=== PATIENT | female | born 1960 | race American Indian/Alaskan Native ===

== ENCOUNTER 2018-12-13 12:42 | Observation (INO) | payer MEDICAID ==
--- NOTE | 2018-12-13 13:02 | Emergency Department Report ---
Blank Doc - Documentation Documentation: This is a 58-year-old female that presents with chest pain and SOB. Patient j ust had a ORIF to right leg. This initial assessment/diagnostic orders/clinical plan/treatment(s) is/are subject to change based on patient's health status, clinical progression and re- assessment by fellow clinical providers in the ED. Further treatment and workup at subsequent clinical providers discretion. Patient/guardians urged not to elope from the ED as their condition may be serious if not clinically assessed and managed. Initial orders include: 1- Patient sent to MAIN ED for further evaluation and treatment 2- EKG 3- labs 4- CXR
[2018-12-13 13:25] LABS: Basophils % (Auto) 0.4 % (0.0-1.8); Eosinophils # (Auto) 0.1 K/mm3 (0.0-0.4); Eosinophils % (Auto) 1.9 % (0.0-4.3); Hematocrit 40.7 % (30.3-42.9); Hemoglobin 13.4 gm/dl (10.1-14.3); Lymphocytes # (Auto) 2.6 K/mm3 (1.2-5.4); Lymphocytes % (Auto) 40.4 % (13.4-35.0); Mean Corpuscular HGB Conc 33 % (30-34); Mean Corpuscular Volume 91 fl (79-97); Monocytes # (Auto) 0.3 K/mm3 (0.0-0.8); Monocytes % (Auto) 5.2 % (0.0-7.3); Platelet Count 184 K/mm3 (140-440); Red Blood Count 4.49 M/mm3 (3.65-5.03); Red Cell Distribution Width 15.3 % (13.2-15.2)
[2018-12-13 13:35] LABS: INR 1.03 (0.87-1.13)
[2018-12-13 13:36] LABS: Partial Thromboplastin Time 28.1 Sec. (24.2-36.6)
[2018-12-13 13:50] LABS: BUN/Creatinine Ratio 16; Blood Urea Nitrogen 8 mg/dL (7-17); Calcium 10.3 mg/dL (8.4-10.2); Hemolysis Index 4
--- NOTE | 2018-12-13 14:15 | XRay Report ---
ROUTINE CHEST, TWO VIEWS: HISTORY: chest pain. The trachea, heart, mediastinal contour, lung cortes and bony thorax are unremarkable. IMPRESSION: Unremarkable chest x-ray.
--- NOTE | 2018-12-13 16:06 | Emergency Department Report ---
HPI - General Chief Complaint: Chest Pain Time Seen by Provider: 12/13/18 13:01 - HPI HPI: Room 26 The patient is a 58-year-old female presenting with chief complaint of chest pain. Patient states her symptoms began this morning at 03:00 with substernal chest pain radiating to the left shoulder. Patient also complains of left upper extremity tingling. Patient states her chest pain has been sharp and intermittent. Patient states that her shortness of breath and nausea associated with her chest pain. Patient does admit to pleuritic component. Of note the patient had surgery for right lower extremity fracture approximately 2-3 weeks ago. The patient states her last stress test occurred about 5 years ago but she's never had a cardiac catheterization Location: Chest Duration: Intermittent since 03:00 Quality: Sharp Severity: Moderate Modifying factors: [see above] Context: [see above] Mode of transportation: [not driving] ED Past Medical Hx - Past Medical History Previous Medical History?: Yes Additional medical history: HEPATITIS C - Surgical History Past Surgical History?: Yes Additional Surgical History: Right ankle surgery, facial surgery, herniorrhaphy - Family History Family history: no significant - Social History Smoking Status: Current Every Day Smoker (3 cigarettes daily) Substance Use Type: Alcohol (occasional), Marijuana - Medications Home Medications: Home Medications Medication Instructions Recorded Confirmed Last Taken Type Simeprevir Sodium [Olysio] 150 mg PO DAILY 12/04/13 12/04/13 Unknown History Sofosbuvir [Sovaldi] 400 mg PO DAILY 12/04/13 12/04/13 Unknown History ALBUTEROL Inhaler (OR & NICU) 2 puff IH QID PRN #1 inhalation 12/06/13 Unknown Rx [ProAir HFA Inhaler] Aspirin [Aspirin BABY CHEW TAB] 81 mg PO QDAY #30 tab.chew 12/06/13 Unknown Rx Atenolol [Tenormin] 25 mg PO QDAY #30 tablet 12/06/13 Unknown Rx Famotidine [Pepcid] 40 mg PO QHS #30 tablet 12/06/13 Unknown Rx Nitroglycerin [Nitrostat] 0.4 mg SL .Q5MIN PRN #30 tab 12/06/13 Unknown Rx levoFLOXacin [Levaquin TAB] 750 mg PO QDAY #12 tablet 12/06/13 Unknown Rx ED Review of Systems ROS: Stated complaint: LFT ARM/CHEST PAIN Other details as noted in HPI Constitutional: denies: diaphoresis Eyes: denies: eye pain ENT: denies: throat pain Respiratory: shortness of breath Cardiovascular: chest pain Endocrine: no symptoms reported Gastrointestinal: nausea. denies: vomiting Genitourinary: denies: dysuria Musculoskeletal: back pain Neurological: denies: headache Physical Exam - Physical Exam Vital Signs: Vital Signs 12/13/18 12/13/18 12/13/18 13:02 14:37 14:45 Temperature 98.2 F Pulse Rate 89 71 Respiratory 18 23 10 L Rate Blood Pressure 135/59 137/80 O2 Sat by Pulse 98 Oximetry 12/13/18 12/13/18 12/13/18 15:01 15:15 15:30 Temperature Pulse Rate 77 68 68 Respiratory 15 13 17 Rate Blood Pressure 147/78 139/82 133/73 O2 Sat by Pulse Oximetry Physical Exam: GENERAL: The patient is well-developed well-nourished female lying on stretcher not appearing to be in acute distress. [] HEENT: Normocephalic. Atraumatic. Extraocular motions are intact. Patient has moist mucous membranes. NECK: Supple. Trachea midline CHEST/LUNGS: Clear to auscultation. There is no respiratory distress noted. HEART/CARDIOVASCULAR: Regular. There is no tachycardia. There is no gallop rub or murmur. ABDOMEN: Abdomen is soft, nontender. Patient has normal bowel sounds. There is no abdominal distention. SKIN: There is no rash. There is no edema. There is no diaphoresis. NEURO: The patient is awake, alert, and oriented. The patient is cooperative. The patient has normal speech MUSCULOSKELETAL: There is no evidence of acute injury. ED Course Vital Signs 12/13/18 12/13/18 12/13/18 13:02 14:37 14:45 Temperature 98.2 F Pulse Rate 89 71 Respiratory 18 23 10 L Rate Blood Pressure 135/59 137/80 O2 Sat by Pulse 98 Oximetry 12/13/18 12/13/18 12/13/18 15:01 15:15 15:30 Temperature Pulse Rate 77 68 68 Respiratory 15 13 17 Rate Blood Pressure 147/78 139/82 133/73 O2 Sat by Pulse Oximetry ED Medical Decision Making - Lab Data Result diagrams: 12/13/18 13:13 12/13/18 13:13 Laboratory Tests 12/13/18 12/13/18 12/13/18 13:13 13:13 13:13 WBC 6.5 RBC 4.49 Hgb 13.4 Hct 40.7 MCV 91 MCH 30 MCHC 33 RDW 15.3 H Plt Count 184 Lymph % (Auto) 40.4 H Parker % (Auto) 5.2 Eos % (Auto) 1.9 Baso % (Auto) 0.4 Lymph # 2.6 Parker # 0.3 Eos # 0.1 Baso # 0.0 Seg Neutrophils % 52.1 Seg Neutrophils # 3.4 PT 14.1 INR 1.03 APTT 28.1 D-Dimer 390.89 H Sodium 146 H Potassium 4.6 Chloride 102.6 Carbon Dioxide 29 Anion Gap 19 BUN 8 Creatinine 0.5 L Estimated GFR > 60 BUN/Creatinine Ratio 16 Glucose 127 H Calcium 10.3 H Troponin T < 0.010 Blood Type Antibody Screen 12/13/18 12/13/18 13:13 15:22 WBC RBC Hgb Hct MCV MCH MCHC RDW Plt Count Lymph % (Auto) Parker % (Auto) Eos % (Auto) Baso % (Auto) Lymph # Parker # Eos # Baso # Seg Neutrophils % Seg Neutrophils # PT INR APTT D-Dimer Sodium Potassium Chloride Carbon Dioxide Anion Gap BUN Creatinine Estimated GFR BUN/Creatinine Ratio Glucose Calcium Troponin T < 0.010 Blood Type A POSITIVE Antibody Screen Negative - EKG Data -: EKG Interpreted by Me EKG shows normal: sinus rhythm Rate: normal - EKG Data When compared to previous EKG there are: no significant change (compared to EKG dated 12/04/2013) Interpretation: other (no ischemic changes seen) - Radiology Data Radiology results: report reviewed (chest x-ray, CT chest), image reviewed (chest x-ray, CT chest) interpreted by me: Chest x-ray-no focal infiltrate, no pneumothorax [facility] [address] [place] [address] XRay Report Signed Patient: NAHED ERNANDEZ MR#: [id number] : 1960 Acct:[id number] Age/Sex: 58 / F ADM Date: 12/13/18 Loc: ED Attending Dr: Ordering Physician: RICARDO CASTILLO NP Date of Service: 12/13/18 Procedure(s): XR chest routine 2V Accession Number(s): [id number] cc: RICARDO CASTILLO NP Fluoro Time In Minutes: ROUTINE CHEST, TWO VIEWS: HISTORY: chest pain. The trachea, heart, mediastinal contour, lung cortes and bony thorax are unremarkable. IMPRESSION: Unremarkable chest x-ray. Transcribed By: ALEXANDRA Dictated By: BRENDAN HEADLEY JR, MD Electronically Authenticated By: BRENDAN HEADLEY JR, MD Signed Date/Time: 12/13/181410 DD/ 09 TD/TT: 12/13/181410 [facility] [address] [place] [address] Cat Scan Report Signed Patient: NAHED ERNANDEZ MR#: [id number] : 1960 Acct:[id number] Age/Sex: 58 / F ADM Date: 12/13/18 Loc: ED Attending Dr: Ordering Physician: PRAVIN OLSEN MD Date of Service: 12/13/18 Procedure(s): CT angio chest Accession Number(s): [id number] cc: PRAVIN OLSEN MD PROCEDURE: CT ANGIO CHEST TECHNIQUE : Enhanced CT of the chest at 2.5 mm axial intervals following a pulmonary embolism protocol. Coronal and sagittal imaging were also obtained. Coronal oblique MIP projections were obtained. CT DOSE LENGTH PRODUCT: 301.3 mGycm HISTORY: chest pain PRIORS: CXR 12/13/2018 FINDINGS: There is no evidence for pulmonary embolism in the main pulmonary artery, right and left pulmonary arteries or their major distributions. However, CT does not exclude distal pul monary emboli. Otherwise, the lung parenchyma are expanded and clear with no evidence for parenchymal nodules, infiltrates, congestion, or pleural effusion. There is no evidence for mediastinal, hilar, or axillary adenopathy. Cardiovascular structures are within normal limits. No evidence for ventricular chamber enlargement is seen. Images through the lung bases include the upper abdomen which show no abnormalities of the visualized abdominal viscera. Bony structures demonstrate no focal abnormalities. IMPRESSION: No evidence for pulmonary embolism. Negative CT of the chest. This document is electronically signed by Zuly Crisostomo MD., December 13 2018 07:03:07 PM ET Transcribed By: [facility] Dictated By: ZULY CRISOSTOMO MD Electronically Authenticated By: ZULY CRISOSTOMO MD Signed Date/Time: 12/13/181904 DD/ 12 TD/TT: 12/13/181812 - Differential Diagnosis ACS, pericarditis, PE, GERD Critical care attestation.: If time is entered above; I have spent that time in minutes in the direct care of this critically ill patient, excluding procedure time. ED Disposition Clinical Impression: Chest pain Disposition: OP ADMIT IP TO THIS HOSP Is pt being admited?: Yes Does the pt Need Aspirin: Yes Condition: Fair Instructions: Chest Pain (ED) Referrals: PALLAVI HARTCAROLINA MD CARLOS [Primary Care Provider] - 3-5 Days Time of Disposition: 19:09 (hospitalist notified (Dr Torres))
[2018-12-13] MEDS ORDERED: ASPIRIN PO ONE (16:10)
--- NOTE | 2018-12-13 19:05 | Cat Scan Report ---
PROCEDURE: CT ANGIO CHEST TECHNIQUE : Enhanced CT of the chest at 2.5 mm axial intervals following a pulmonary embolism protoco l. Coronal and sagittal imaging were also obtained. Coronal oblique MIP projections were obtained. CT DOSE LENGTH PRODUCT: 301.3 mGycm HISTORY: chest pain PRIORS: CXR 12/13/2018 FINDINGS: There is no evidence for pulmonary embolism in the main pulmonary artery, right and left pulmonary ar teries or their major distributions. However, CT does not exclude distal pulmonary emboli. Otherwise, the lung parenchyma are expanded and clear with no evidence for parenchymal nodules, infil trates, congestion, or pleural effusion. There is no evidence for mediastinal, hilar, or axillary juancho nopathy. Cardiovascular structures are within normal limits. No evidence for ventricular chamber enla rgement is seen. Images through the lung bases include the upper abdomen which show no abnormalities of the visualized abdominal viscera. Bony structures demonstrate no focal abnormalities. IMPRESSION: No evidence for pulmonary embolism. Negative CT of the chest. This document is electronically signed by Zuly Crisostomo MD., December 13 2018 07:03:07 PM ET
--- NOTE | 2018-12-13 19:46 | History and Physical Report ---
History of Present Illness Date of examination: 12/13/18 Date of admission: 12/13/18 Chief complaint: Chest pain for 1 day History of present illness: 58-year-old female presents with chief complaint of chest pain. Patient states her symptoms began this morning at 03:00 with substernal chest pain radiating to the left shoulder. Patient also complains of left upper extremity tingling. Patient states her chest pain has been sharp and intermittent. Patient states that her shortness of breath and nausea associated with her chest pain. Patient does admit to pleuritic component. Of note the patient had surgery for right lower extremity fracture approximately 2-3 weeks ago. The patient states her last stress test occurred about 5 years ago but she's never had a cardiac catheterization Past Medical History Previous Medical History?: Yes Additional medical history: HEPATITIS C Surgical History Past Surgical History?: Yes Additional Surgical History: Right ankle surgery, facial surgery, herniorrhaphy Family History Family history: no significant Social History Smoking Status: Current Every Day Smoker (3 cigarettes daily) Substance Use Type: Alcohol (occasional), Marijuana Review of Systems ROS: Stated complaint: LFT ARM/CHEST PAIN Other details as noted in HPI Constitutional: denies: diaphoresis Eyes: denies: eye pain ENT: denies: throat pain Respiratory: shortness of breath Cardiovascular: chest pain Endocrine: no symptoms reported Gastrointestinal: nausea. denies: vomiting Genitourinary: denies: dysuria Musculoskeletal: back pain Neurological: denies: headache Medications and Allergies Allergies Allergy/AdvReac Type Severity Reaction Status Date / Time acetaminophen [From Percocet] AdvReac Unknown Verified 12/04/13 05:28 oxycodone HCl [From Percocet] AdvReac Unknown Verified 12/04/13 05:28 Penicillins AdvReac Unknown Verified 12/04/13 05:28 Home Medications Medication Instructions Recorded Confirmed Last Taken Type Aspirin [Aspirin BABY CHEW TAB] 81 mg PO QDAY #30 tab.chew 12/06/13 12/13/18 12/13/18 Rx Ascorbic Acid [Vitamin C] 500 mg PO DAILY 12/13/18 12/13/18 12/13/18 History Cyproheptadine [Periactin] 4 mg PO TID 12/13/18 12/13/18 12/12/18 History Docusate Sodium [Colace] 100 mg PO DAILY 12/13/18 12/13/18 12/13/18 History Pantoprazole [Protonix] 40 mg PO QDAY 12/13/18 12/13/18 12/12/18 History Exam - Constitutional Vitals: Temp Pulse Resp BP Pulse Ox 98.2 F 68 17 133/73 98 12/13/18 13:02 12/13/18 15:30 12/13/18 15:30 12/13/18 15:30 12/13/18 13:02 General appearance: Present: no acute distress, well-nourished - EENT Eyes: Present: PERRL ENT: hearing intact, clear oral mucosa - Neck Neck: Present: supple, normal ROM - Respiratory Respiratory effort: normal Respiratory: bilateral: CTA - Cardiovascular Heart rate: 78 Rhythm: regular Heart Sounds: Present: S1 & S2. Absent: rub, click - Extremities Extremities: no ischemia, pulses intact, pulses symmetrical, No edema Peripheral Pulses: within normal limits - Abdominal General gastrointestinal: Present: soft, non-tender, non-distended, normal bowel sounds Female genitourinary: Present: normal - Integumentary Integumentary: Present: clear, warm, dry - Musculoskeletal Musculoskeletal: gait normal, strength equal bilaterally - Psychiatric Psychiatric: appropriate mood/affect, intact judgment & insight - Neurologic Neurologic: CNII-XII intact, moves all extremities - Allied Health Allied health notes reviewed: nursing, case management Results - Labs CBC & Chem 7: 12/14/18 02:19 12/14/18 02:07 Labs: Laboratory Last Values WBC 6.5 K/mm3 (4.5-11.0) 12/13/18 13:13 RBC 4.49 M/mm3 (3.65-5.03) 12/13/18 13:13 Hgb 13.4 gm/dl (10.1-14.3) 12/13/18 13:13 Hct 40.7 % (30.3-42.9) 12/13/18 13:13 MCV 91 fl (79-97) 12/13/18 13:13 MCH 30 pg (28-32) 12/13/18 13:13 MCHC 33 % (30-34) 12/13/18 13:13 RDW 15.3 % (13.2-15.2) H 12/13/18 13:13 Plt Count 184 K/mm3 (140-440) 12/13/18 13:13 Lymph % (Auto) 40.4 % (13.4-35.0) H 12/13/18 13:13 Imperial % (Auto) 5.2 % (0.0-7.3) 12/13/18 13:13 Eos % (Auto) 1.9 % (0.0-4.3) 12/13/18 13:13 Baso % (Auto) 0.4 % (0.0-1.8) 12/13/18 13:13 Lymph # 2.6 K/mm3 (1.2-5.4) 12/13/18 13:13 Imperial # 0.3 K/mm3 (0.0-0.8) 12/13/18 13:13 Eos # 0.1 K/mm3 (0.0-0.4) 12/13/18 13:13 Baso # 0.0 K/mm3 (0.0-0.1) 12/13/18 13:13 Seg Neutrophils % 52.1 % (40.0-70.0) 12/13/18 13:13 Seg Neutrophils # 3.4 K/mm3 (1.8-7.7) 12/13/18 13:13 PT 14.1 Sec. (12.2-14.9) 12/13/18 13:13 INR 1.03 (0.87-1.13) 12/13/18 13:13 APTT 28.1 Sec. (24.2-36.6) 12/13/18 13:13 D-Dimer 390.89 ng/mlDDU (0-234) H 12/13/18 13:13 Sodium 146 mmol/L (137-145) H 12/13/18 13:13 Potassium 4.6 mmol/L (3.6-5.0) 12/13/18 13:13 Chloride 102.6 mmol/L (98-107) 12/13/18 13:13 Carbon Dioxide 29 mmol/L (22-30) 12/13/18 13:13 Anion Gap 19 mmol/L 12/13/18 13:13 BUN 8 mg/dL (7-17) 12/13/18 13:13 Creatinine 0.5 mg/dL (0.7-1.2) L 12/13/18 13:13 Estimated GFR > 60 ml/min 12/13/18 13:13 BUN/Creatinine Ratio 16 % 12/13/18 13:13 Glucose 127 mg/dL (65-100) H 12/13/18 13:13 Calcium 10.3 mg/dL (8.4-10.2) H 12/13/18 13:13 Troponin T < 0.010 ng/mL (0.00-0.029) 12/13/18 15:22 Blood Type A POSITIVE 12/13/18 13:13 Antibody Screen Negative 12/13/18 13:13 Short CBC 12/13/18 12/14/18 Range/Units 13:13 02:19 WBC 6.5 6.0 (4.5-11.0) K/mm3 Hgb 13.4 12.3 (10.1-14.3) gm/dl Hct 40.7 37.4 (30.3-42.9) % Plt Count 184 173 (140-440) K/mm3 BMP 12/13/18 12/14/18 13:13 02:07 Sodium 146 H 142 Potassium 4.6 3.8 Chloride 102.6 103.2 Carbon Dioxide 29 27 BUN 8 8 Creatinine 0.5 L 0.4 L Glucose 127 H 133 H Calcium 10.3 H 9.2 Cardiac Enzymes 12/13/18 12/13/18 12/13/18 Range/Units 13:13 15:22 20:30 Troponin T < 0.010 < 0.010 < 0.010 (0.00-0.029) ng/mL 12/14/18 Range/Units 02:19 Troponin T < 0.010 (0.00-0.029) ng/mL Liver Function 12/14/18 Range/Units 02:07 Total Bilirubin 0.20 (0.1-1.2) mg/dL AST 16 (5-40) units/L ALT 18 (7-56) units/L Alkaline Phosphatase 82 (35-129) units/L Albumin 3.8 L (3.9-5) g/dL - Imaging and Cardiology EKG: report reviewed (NSR 83/min LVH) Imaging and Cardiology: Rt Ankle xray IMPRESSION: Internal fixation hardware identified through medial and lateral malleolus with satisfactory healing. Rt Knee x ray Nl CTA chest IMPRESSION: No evidence for pulmonary embolism. Negative CT of the chest. Assessment and Plan Advance Directives: Yes (Full code) VTE prophylaxis?: Chemical Plan of care discussed with patient/family: Yes - Patient Problems (1) Chest pain Current Visit: Yes Status: Acute Qualifiers: Chest pain type: unspecified Qualified Code(s): R07.9 - Chest pain, unspecified Plan to address problem: Chest pain protocol Lexiscan in AM Serial Troponins. Gerd and costochondritis in differential diagnosis (2) Hepatitis C Current Visit: No Status: Inactive Plan to address problem: Treated and in remission (3) Right ankle injury Current Visit: Yes Status: Chronic Qualifiers: Encounter type: initial encounter Qualified Code(s): S99.911A - Unspecified injury of right ankle, initial encounter Plan to address problem: HEaled Ortho consult if necessary Cast maybe removed as outpatient follow up (4) DVT prophylaxis Current Visit: Yes Status: Acute Plan to address problem: On Lovenox and GI prophyulaxis
[2018-12-13] MEDS ORDERED: PROAIR IH PRN (19:49)
[2018-12-13] MEDS ORDERED: ZOFRAN IV PRN (19:50)
[2018-12-13] MEDS ORDERED: TYLENOL PO PRN (19:50)
[2018-12-13] MEDS ORDERED: DILAUDID IV PRN (19:50)
[2018-12-13] MEDS ORDERED: SODIUM CHLORIDE FLUSH SYRINGE 10 ML IV PRN (19:50)
[2018-12-13] MEDS ORDERED: LOVENOX SUB-Q SCH (20:00)
[2018-12-13] MEDS ORDERED: [UNRECOGNIZED DRUG - OTHER] PO SCH (20:00)
[2018-12-13] MEDS ORDERED: D5NS 1,000 ML IV SCH (20:00)
[2018-12-13] MEDS: TENORMIN PO SCH (20:24)
[2018-12-13] MEDS: BABY ASPIRIN PO SCH (20:24)
[2018-12-13] MEDS: SODIUM CHLORIDE FLUSH SYRINGE 10 ML IV SCH (21:36)
--- NOTE | 2018-12-13 21:37 | XRay Report ---
PROCEDURE: XR ANKLE 2V RT TECHNIQUE: Right ankle radiographs, AP and lateral views. HISTORY: right ankle fracture COMPARISONS: None . FINDINGS: Distally limited due to the overlying plaster cast. Internal fixation hardware is identified through the medial and lateral malleolus. Alignment is satisfactory. There is no fracture line visualized. So ft tissues are unremarkable. IMPRESSION: Internal fixation hardware identified through medial and lateral malleolus with satisfact ory healing. This document is electronically signed by Jhonathan Monteiro MD., December 13 2018 09:35:25 PM ET
--- NOTE | 2018-12-13 21:38 | XRay Report ---
PROCEDURE: XR KNEE 3V RT TECHNIQUE: Right knee radiographs, AP, lateral, and sunrise views. HISTORY: right knee fracture COMPARISONS: None FINDINGS: Fracture (s) and/or Dislocation(s): None Alignment: Normal Joint space(s): Normal Soft tissues: Normal Bone mineralization: Normal Foreign bodies: None IMPRESSION: Normal Examination This document is electronically signed by Jhonathan Monteiro MD., December 13 2018 09:36:48 PM ET
[2018-12-13] MEDS ORDERED: NON-FORMULARY (Famotidine [Pepcid] 40 MG) PO SCH (22:00)
[2018-12-13] MEDS: PERCOCET 5/325 PO PRN (23:10)
[2018-12-14] MEDS ORDERED: PROVENTIL IH PRN (01:32)
[2018-12-14 02:40] LABS: Basophils % (Auto) 0.4 % (0.0-1.8); Eosinophils # (Auto) 0.2 K/mm3 (0.0-0.4); Eosinophils % (Auto) 3.4 % (0.0-4.3); Hematocrit 37.4 % (30.3-42.9); Hemoglobin 12.3 gm/dl (10.1-14.3); Lymphocytes # (Auto) 2.8 K/mm3 (1.2-5.4); Lymphocytes % (Auto) 47.5 % (13.4-35.0); Mean Corpuscular HGB Conc 33 % (30-34); Mean Corpuscular Volume 91 fl (79-97); Monocytes # (Auto) 0.5 K/mm3 (0.0-0.8); Monocytes % (Auto) 8.9 % (0.0-7.3); Platelet Count 173 K/mm3 (140-440); Red Blood Count 4.12 M/mm3 (3.65-5.03); Red Cell Distribution Width 14.9 % (13.2-15.2)
[2018-12-14 03:29] LABS: Alanine Aminotransferase 18 units/L (7-56); Albumin 3.8 g/dL (3.9-5); BUN/Creatinine Ratio 20; Blood Urea Nitrogen 8 mg/dL (7-17); Calcium 9.2 mg/dL (8.4-10.2); Hemolysis Index 10
[2018-12-14] MEDS ORDERED: COLACE PO SCH (10:00)
[2018-12-14] MEDS ORDERED: PROTONIX PO SCH (10:00)
[2018-12-14] MEDS ORDERED: SOFOSBUVIR PO SCH (10:00)
[2018-12-14] MEDS ORDERED: LOVENOX SUB-Q SCH (10:00)
[2018-12-14] MEDS ORDERED: VITAMIN C PO SCH (10:00)
[2018-12-14] MEDS ORDERED: LEXISCAN IV ONE (10:47)
[2018-12-14] MEDS: BABY ASPIRIN PO SCH (13:07)
[2018-12-14 13:08] VITALS: BP 128/73
[2018-12-14] MEDS: TENORMIN PO SCH (13:08)
[2018-12-14] MEDS: SODIUM CHLORIDE FLUSH SYRINGE 10 ML IV SCH (13:09)
[2018-12-14] MEDS: PERCOCET 5/325 PO PRN (13:24)
[2018-12-14] MEDS ORDERED: PERIACTIN PO SCH (14:00)
--- NOTE | 2018-12-14 15:29 | Discharge Summary ---
Providers - Providers Date of Admission: 12/13/18 19:50 Date of discharge: 12/14/18 Attending physician: DENISE MARTINEZ [facility] Hospitalization Condition: Fair Hospital course: Patient is 58 yo presented with chest pain and shortness of breath. Patient stated her chest pain has been sharp and intermittent. Also of note, she had fracture to right lower extremity 2-3 weeks earlier. She was seen and evaluated in emergency department. Cardiac enzymes were normal. The patient was given aspirin and admitted. Stress test done that was normal. Chest pain determined to be noncardiac due to GERD. Patient was subsequently discharged home. Disposition: DC- TO HOME OR SELFCARE - Discharge Diagnoses (1) Chest pain Status: Acute Qualifiers: Chest pain type: unspecified Qualified Code(s): R07.9 - Chest pain, unspecified (2) GERD (gastroesophageal reflux disease) Status: Acute Core Measure Documentation - Palliative Care Palliative Care/ Comfort Measures: Not Applicable - Core Measures Any of the following diagnoses?: none Exam - Constitutional Vitals: Temp Pulse Resp BP Pulse Ox 97.6 F 74 16 128/73 96 12/14/18 07:39 12/14/18 13:08 12/14/18 07:39 12/14/18 13:08 12/14/18 07:39 Plan Activity: no restrictions Diet: low fat, low cholesterol Additional Instructions: 1.Follow up with PCP or [place] harshal in 1 week Follow up with: WILMER NUNEZ MD [Primary Care Provider] - 3-5 Days
[2018-12-14] MEDS ORDERED: PEPCID PO SCH (22:00)
== END 2018-12-14 23:00 | disposition home or self-care (01) ==
LOC: ED 12:42 → 4A 19:50
PROVIDERS: ADMIT Internal Medicine; ATTEND Internal Medicine
DX: R07.89 Other chest pain (principal); B19.20 Unspecified viral hepatitis C without hepatic coma
CPT/HCPCS: 36415; 71046; 71275; 73562; 73600; 78452; 80048; 80053; 83036; 84484; 85025; 85379; 85610; 85730; 86850; 86900; 86901; 93005; 93010; 93017; 96372; 99285; 99406; A9502; G0378; J1650; J2785; J7042; Q9967

== ENCOUNTER 2019-03-27 06:13 | Emergency (ER) | payer MEDICAID ==
[2019-03-27 06:23] VITALS: BP 171/92
[2019-03-27] MEDS ORDERED: PEPCID PO ONE (07:51)
[2019-03-27] MEDS ORDERED: IBUPROFEN PO ONE (07:51)
[2019-03-27] MEDS ORDERED: DEPO-Medrol IM ONE (07:51)
--- NOTE | 2019-03-27 07:51 | Emergency Department Report ---
ED Rash HPI - HPI Chief Complaint: Skin Rash Stated Complaint: INSECT BITE Time Seen by Provider: 03/27/19 07:46 Duration: 2 Days Location: Head, Upper Extremities Suspected Cause: Insect Rash Symptoms: Yes Itching, No Facial Swelling, No Tongue/Oral Swelling, No Breathing Difficulties, No Choking Sensation, No Wheezing/Dyspnea, No Peeling, No Blistering, No Fever, No Lightheaded, No Malaise, No Myalgias Severity: mild Other History: PT COMES IN WITH A SEVERAL DAY HISTORY OF INSECT BITES WHILE AT WORK. SHE HAS BITES ON HER NECK AND BEHIND HER EAR. SHE REPORTS THEY ARE ALL OVER. SHE STATES THEY ITCH AND HURT. SHE IS REQUESTING HYDROCODONE. NO SYSTEMIC SYMPTOMS. VSS. NAD. ABC INTACT ED Review of Systems ROS: Stated complaint: INSECT BITE Other details as noted in HPI Comment: All other systems reviewed and negative ED Past Medical Hx - Past Medical History Previous Medical History?: Yes Hx Congestive Heart Failure: No Hx Diabetes: No Hx Asthma: No Hx COPD: No Additional medical history: HEPATITIS C - Surgical History Past Surgical History?: Yes Additional Surgical History: Right ankle surgery, facial surgery, herniorrhaphy - Family History Family history: no significant - Social History Smoking Status: Current Every Day Smoker Substance Use Type: Alcohol - Medications Home Medications: Home Medications Medication Instructions Recorded Confirmed Last Taken Type Aspirin [Aspirin BABY CHEW TAB] 81 mg PO QDAY #30 tab.chew 12/06/13 12/13/18 12/13/18 Rx Pantoprazole [Protonix TAB] 40 mg PO QDAY 12/13/18 12/13/18 12/12/18 History Cetirizine HCl [ZyrTEC] 10 mg PO DAILY #30 capsule 03/27/19 Unknown Rx hydrOXYzine PAMOATE [Vistaril] 25 mg PO Q6HR PRN #20 capsule 03/27/19 Unknown Rx predniSONE [Deltasone] 20 mg PO DAILY #5 tablet 03/27/19 Unknown Rx Rash Exam - Exam General: Vital signs noted. No distress. Alert and acting appropriately. HEENT: No Periorbital Edema, No Conjuctival Injection, No Chemosis, No Perioral Edema, No Tongue Edema, No Uvular Edema, No Compromised Airway, No Drooling Lungs: Yes Good Air Exchange, No Wheezes, No Ronchi, No Stridor, No Cough, No Labored Respirations, No Retractions, No Use of Accessory Muscles, No Other Abnormal Lung Sounds Heart: Yes Regular, No Murmur Skin: Yes Erythema, No Urticarial Rash, No Maculopapular Rash, No Morbilliform rash, No Bulla(e), No Excoriations, No Weeping, No Tenderness, No Edema, No Encrustations Other: Positive: Abdomen Normal, Neurologic Normal, Musculoskeletal Normal ED Course Vital Signs 03/27/19 06:19 Temperature 97.9 F Pulse Rate 85 Respiratory 16 Rate Blood Pressure 171/92 O2 Sat by Pulse 97 Oximetry ED Medical Decision Making - Medical Decision Making INSECT BITES MEDICATED IN ER REFUSED TYLENOL OR MOTRIN- SHE WANTS HYDROCODONE. SHE WAS INSTRUCTED WE DONT USE THAT MEDICATION FOR INSECT BITES. NO ALLERGIC REACTION- SHE SAW INSECT BITE HER. THIS HAS BEEN ONGOING ISSUE FOR HER. ABC INTACT. NO WHEEZING. AMBULATORY. NO TACHYCARDIA/HYPOTENSION PT BEING DC HOME WITH PCP FOLLOW UP Vital Signs 03/27/19 06:19 Temperature 97.9 F Pulse Rate 85 Respiratory 16 Rate Blood Pressure 171/92 O2 Sat by Pulse 97 Oximetry - Differential Diagnosis INSECT BITES Critical care attestation.: If time is entered above; I have spent that time in minutes in the direct care of this critically ill patient, excluding procedure time. ED Disposition Clinical Impression: Insect bite Disposition: DC-01 TO HOME OR SELFCARE Is pt being admited?: No Does the pt Need Aspirin: No Condition: Stable Instructions: Insect Bite or Sting (ED) Additional Instructions: KEEP BITES CLEAN WITH SOAP AND WATER AVOID THESE BUGS THAT YOU KEEP GETTING BIT BY CONSIDER INSECT REPELLENT FOLLOW UP WITH PCP REFERRAL BELOW CONTINUE HOME MEDICATIONS Prescriptions: predniSONE [Deltasone] 20 mg PO DAILY #5 tablet hydrOXYzine PAMOATE [Vistaril] 25 mg PO Q6HR PRN #20 capsule PRN Reason: Itching Cetirizine HCl [ZyrTEC] 10 mg PO DAILY #30 capsule Referrals: PRIMARY MD ZULEYKA [Primary Care Provider] - 3-5 Days GERARDO HENSLEY MD [Staff Physician] - 3-5 Days Time of Disposition: 08:39
== END 2019-03-27 09:10 | disposition home or self-care (01) ==
LOC: ED 06:13
DX: S10.96XA Insect bite of unspecified part of neck, initial encounter (principal); S00.86XA Insect bite (nonvenomous) of other part of head, initial encounter; B19.20 Unspecified viral hepatitis C without hepatic coma; F17.200 Nicotine dependence, unspecified, uncomplicated; Z98.890 Other specified postprocedural states; Z79.899 Other long term (current) drug therapy; Z91.040 Latex allergy status; Z88.0 Allergy status to penicillin; Z88.8 Allergy status to other drugs, medicaments and biological substances; W57.XXXA Bitten or stung by nonvenomous insect and other nonvenomous arthropods, initial encounter; Y93.89 Activity, other specified; Y92.89 Other specified places as the place of occurrence of the external cause; Y99.8 Other external cause status
CPT/HCPCS: 96372; 99282; J1040

== ENCOUNTER 2019-04-03 10:46 | Emergency (ER) | payer MEDICAID ==
[2019-04-03 11:04] VITALS: BP 136/85
--- NOTE | 2019-04-03 13:13 | Emergency Department Report ---
- General Chief complaint: Skin Rash Stated complaint: BITTEN BY SOMETHING Time Seen by Provider: 04/03/19 12:17 Source: patient Mode of arrival: Ambulatory Limitations: No Limitations - Related Data Home Medications Medication Instructions Recorded Confirmed Last Taken Pantoprazole [Protonix TAB] 40 mg PO QDAY 12/13/18 12/13/18 12/12/18 Previous Rx's Medication Instructions Recorded Last Taken Type Aspirin [Aspirin BABY CHEW TAB] 81 mg PO QDAY #30 tab.chew 12/06/13 12/13/18 Rx Cetirizine HCl [ZyrTEC] 10 mg PO DAILY #30 capsule 03/27/19 Unknown Rx predniSONE [Deltasone] 20 mg PO DAILY #5 tablet 03/27/19 Unknown Rx Sulfamethoxazole/Trimethoprim 1 each PO BID 7 Days #14 tablet 04/03/19 Unknown Rx [Bactrim DS TAB] hydrOXYzine PAMOATE [Vistaril] 25 mg PO Q6HR PRN #20 capsule 04/03/19 Unknown Rx Allergies Allergy/AdvReac Type Severity Reaction Status Date / Time acetaminophen [From Percocet] Allergy Unknown Verified 03/27/19 06:21 adhesive tape Allergy Unknown Verified 03/27/19 06:21 latex Allergy Unknown Verified 03/27/19 06:21 oxycodone HCl [From Percocet] Allergy Unknown Verified 03/27/19 06:21 Penicillins Allergy Unknown Verified 03/27/19 06:21 Abscess Boil HPI - HPI Chief Complaint: Skin Rash Stated Complaint: BITTEN BY SOMETHING Time Seen by Provider: 04/03/19 12:17 Home Medications: Home Medications Medication Instructions Recorded Confirmed Last Taken Pantoprazole [Protonix TAB] 40 mg PO QDAY 12/13/18 12/13/18 12/12/18 Previous Rx's Medication Instructions Recorded Last Taken Type Aspirin [Aspirin BABY CHEW TAB] 81 mg PO QDAY #30 tab.chew 12/06/13 12/13/18 Rx Cetirizine HCl [ZyrTEC] 10 mg PO DAILY #30 capsule 03/27/19 Unknown Rx predniSONE [Deltasone] 20 mg PO DAILY #5 tablet 03/27/19 Unknown Rx Sulfamethoxazole/Trimethoprim 1 each PO BID 7 Days #14 tablet 04/03/19 Unknown Rx [Bactrim DS TAB] hydrOXYzine PAMOATE [Vistaril] 25 mg PO Q6HR PRN #20 capsule 04/03/19 Unknown Rx Allergies/Adverse Reactions: Allergies Allergy/AdvReac Type Severity Reaction Status Date / Time acetaminophen [From Percocet] Allergy Unknown Verified 03/27/19 06:21 adhesive tape Allergy Unknown Verified 03/27/19 06:21 latex Allergy Unknown Verified 03/27/19 06:21 oxycodone HCl [From Percocet] Allergy Unknown Verified 03/27/19 06:21 Penicillins Allergy Unknown Verified 03/27/19 06:21 ED Review of Systems ROS: Stated complaint: BITTEN BY SOMETHING Other details as noted in HPI ED Past Medical Hx - Past Medical History Previous Medical History?: Yes Hx Congestive Heart Failure: No Hx Diabetes: No Hx Asthma: No Hx COPD: No Additional medical history: HEPATITIS C - Surgical History Past Surgical History?: Yes Additional Surgical History: Right ankle surgery, facial surgery, herniorrhaphy - Social History Smoking Status: Current Every Day Smoker Substance Use Type: Alcohol, Marijuana - Medications Home Medications: Home Medications Medication Instructions Recorded Confirmed Last Taken Type Aspirin [Aspirin BABY CHEW TAB] 81 mg PO QDAY #30 tab.chew 12/06/13 12/13/18 12/13/18 Rx Pantoprazole [Protonix TAB] 40 mg PO QDAY 12/13/18 12/13/18 12/12/18 History Cetirizine HCl [ZyrTEC] 10 mg PO DAILY #30 capsule 03/27/19 Unknown Rx predniSONE [Deltasone] 20 mg PO DAILY #5 tablet 03/27/19 Unknown Rx Sulfamethoxazole/Trimethoprim 1 each PO BID 7 Days #14 tablet 04/03/19 Unknown Rx [Bactrim DS TAB] hydrOXYzine PAMOATE [Vistaril] 25 mg PO Q6HR PRN #20 capsule 04/03/19 Unknown Rx ED Physical Exam - General Limitations: No Limitations ED Course Vital Signs 04/03/19 11:02 Temperature 98.4 F Pulse Rate 64 Respiratory 18 Rate Blood Pressure 136/85 O2 Sat by Pulse 97 Oximetry Critical care attestation.: If time is entered above; I have spent that time in minutes in the direct care of this critically ill patient, excluding procedure time. ED Disposition Clinical Impression: Dermatitis Disposition: DC-01 TO HOME OR SELFCARE Is pt being admited?: No Condition: Stable Additional Instructions: Please follow up with: Dr Tank Schilling, Credentialing Coordinator [address] [place] [address] [place] [address] Prescriptions: Sulfamethoxazole/Trimethoprim [Bactrim DS TAB] 1 each PO BID 7 Days #14 tablet hydrOXYzine PAMOATE [Vistaril] 25 mg PO Q6HR PRN #20 capsule PRN Reason: Itching Time of Disposition: 13:10
== END 2019-04-03 13:28 | disposition home or self-care (01) ==
LOC: ED 10:46
DX: L30.9 Dermatitis, unspecified (principal); F17.200 Nicotine dependence, unspecified, uncomplicated; F12.10 Cannabis abuse, uncomplicated; Z98.890 Other specified postprocedural states; Z79.899 Other long term (current) drug therapy; Z88.0 Allergy status to penicillin; Z88.6 Allergy status to analgesic agent; Z91.040 Latex allergy status; Z91.09 Other allergy status, other than to drugs and biological substances
CPT/HCPCS: 99282